=== PATIENT | male | born 1965 | race Caucasian/White ===

== ENCOUNTER 2017-04-30 20:12 | Emergency (ER) | payer OTHER ==
[~2017-04-30] VITALS: Ht 180.3 cm; Wt 75.0 kg
[~2017-04-30 20:12] MED LIST: ALBUTEROL17 GM; BENADRYL25 MG PO; CLARITIN10 M3 PO; LISINOPRIL; LORTAB 5-325 M1 EACH PO; NO MEDICATIONS; PEPCID AC20 M2 PO; PREDNISONE PO; VOLTAREN75 MG PO
== END 2017-04-30 21:46 | disposition home or self-care (01) ==
LOC: SED 20:12
DX: S09.90XA Unspecified injury of head, initial encounter (principal); F17.210 Nicotine dependence, cigarettes, uncomplicated; Z88.0 Allergy status to penicillin; V29.60XA Unspecified motorcycle rider injured in collision with unspecified motor vehicles in traffic accident, initial encounter
CPT/HCPCS: 99284